=== PATIENT | male | born 1965 | race Caucasian/White ===

== ENCOUNTER 2021-11-19 12:04 | Inpatient (IN) | payer MEDICAID, SELFPAY ==
[2021-11-19] VITALS (70 sets, daily range): BP systolic 105–170; BP diastolic 52–102; PULSE 10–145; RESP 12–36; TEMP 36.4–39; O2SAT 86–98
[2021-11-19 13:00] LABS: Abs Immature Grans 0.06 10^3/uL (0.0-0.06); Absolute Basophil Count 0.01 10^3/uL (0.0-0.2); Absolute Eosinophil Count 0.01 10^3/uL (0.0-0.7); Absolute Lymphocyte Count 0.61 10^3/uL (1.2-3.4); Absolute Monocyte Count 0.44 10^3/uL (0.1-0.8); Absolute Neutrophil Count 3.28 10^3/uL (1.2-6.7); Basophils % 0.2; Eosinophils % 0.2; HCT 41.4 % (40.0-50.0); HGB 14.3 g/dL (13.5-17.5); Immature Grans % 1.4; Lymphocytes % 13.8; MCH 30.1 pg (27.0-33.0); MCHC 34.5 % (32.0-36.0); MCV 87.2 fL (80-95); MPV 9.8 fL (8.0-11.0); Neutrophils % 74.4; Nucleated RBC 0 %; Platelet Count 139 10^3/uL (130-400); RBC 4.75 10^6/uL (4.36-5.78); RDW-SD 41.2 fL; WBC 4.41 10^3/uL (4.4-10.8)
--- NOTE | 2021-11-19 13:15 | RT.EKG_ITS ---
APPROVED REPORT Exam: Resting ECG Reason for Exam: SOB Patient Location: E HR:102 bpm ECG Measurements Heart Rate 102 AXIS NE 192 P 47 QRSd 85 QRS 31 QT 336 T 89 QTc 439 Conclusion Sinus tachycardia...rate> 99 Supraventricular bigeminy...bigeminy string>4 w/ SV complexes I have reviewed and interpreted ECG and agree with software generated interpretation.
--- NOTE | 2021-11-19 13:22 | ED.GENADUL_ITS ---
Discharge Plan Disposition Patient Disposition: [facility] INPATIENT Discharge Details Chief Complaint: SOB Clinical Impression: Atrial fibrillation with rapid ventricular response, COVID Admit Date/Time: 11/19/21 17:46 Admit Provider: Jeffery Bahena Attending Provider: Jeffery Bahena Primary Care Provider: Eliecer Weller ED Provider: Amalia Martinez Discharge Data Discharge Date/Time-TO BE ENTERED AT DEPARTURE: 11/19/21 18:49 Medical Decision Making Tucker Cadet is a 56-year-old man with a history of hypertension, paroxysmal atrial fibrillation on Xarelto recently diagnosed with Covid presenting to emergency department with cough and shortness of breath. On exam patient is nontoxic-appearing. O2 sat 90 to 92% on room air at rest. Heart rate 90-1 05, irregular. Concern for likely worsening Covid pneumonia versus CHF versus pu lmonary embolism versus other. Doubt myocarditis. Exam/history at this time is not consistent with sepsis, acute aortic process. EKG shows sinus tachycardia at 102. Plan for IV placement, telemetry, screening labs, imaging pending D- dimer. Labs reviewed, D-dimer elevated, hemoglobin 14.3, sodium 131, creatinine 1.0, troponin negative, BNP 6. Plan for CT chest. CT chest shows Covid pneumonia, no PE. Pt meets criteria for monoclonal antibody infusion. Patient converted to atrial fibrillation with rapid ventricular rate. Heart rate 140s, blood pressure unchanged. Patient reports that he can feel sensation of palpitations since onset of A. fib, no other new complaints at this time. Plan for diltiazem bolus, patient is on p.o. diltiazem at home. Heart rate improved after bolus to 120s, plan for diltiazem infusion. Patient noted to have desatted to high 80s with movement. At this time given atrial fibrillation with RVR, patient not taking his meds recently, and COVID-19 with l ikely exertional hypoxia, plan for admission. Medical Records Medical records reviewed: Yes I reviewed the patient's medical records. Imaging Data Radiologic Study: Attestation: I personally reviewed and interpreted this imaging study as follows: Radiologist's impression: EXAM: CT CHEST PE CTA CLINICAL HISTORY: SOB, COVID+. TECHNIQUE: Imaging Protocol: Axial CT angiography was performed with multi- slice acquisition and multi-planar and/or 3D reconstructions. CONTRAST MATERIAL: Intravenous: Omnipaque 350 Contrast volume:100 ml COMPARISON: No exams were available for comparison FINDINGS: Exam is limited by respiratory motion. There are bilateral mainly peripheral ground-glass infiltrates in both upper and lower lobes, with appearance compatible with COVID- 19 pneumonia. No pleural or pericardial effusions are seen. There is mild reactive mediastinal adenopathy. No pulmonary emboli are identified. Small branch vessel emboli are not excluded due to motion. It is normal in diameter. The liver shows fatty infiltration. Degenerative changes are noted in the mid to lower thoracic spine. IMPRESSION: Bilateral infiltrates compatible with COVID- 19 pneumonia. No evidence of pulmonary embolism. Lab Data Lab results reviewed: Yes I reviewed the patient's lab results. ECG Data Attestation: I personally reviewed and interpreted this ECG (s) as follows: Interpretation: EKG shows sinus tachycardia at 102, normal axis, frequent PACs, no acute ischemic changes, no STEMI EKG 16: 11 shows atrial fibrillation at 133, normal axis, no acute ischemic changes, no STEMI HPI General Mode of arrival: ambulatory . Date/Time Provider Initiated Documentation: 11/19/21 12:28 . Limitations to Documentation: no limitations . Information obtained by: patient, RN notes reviewed and old records reviewed . HPI Narrative: Tucker Cadet is a 56-year-old man with a history of hypertension, atrial fibrillation on Xarelto, recently diagnosed with Covid presenting to the emergency department with shortness of breath. Patient reports that he began having symptoms on 11/12/2021 including cough, shortness of breath, and decreased appetite, and then had positive PCR test for Covid 2 days later. Patient reports that he has had gradually worsening shortness of breath with exertion over the past 2 days. Pulse oximeter at home has been in the high 80s. Patient reports that he has not taken his metoprolol in 3 weeks, as he had trouble getting the prescription refilled. Patient also reports that he has not taken his Lasix since onset of symptoms as he was concerned about getting dehydrated. He does state that he took Lasix this morning as he was worried that he might have fluid buildup in his lungs. He has had some orthopnea intermittently since onset of symptoms. He denies any pain, fevers, vomiting, diarrhea, swelling, rash, numbness, weakness. Has been taking his other medications as usual. He reports decrease p.o. intake due to lack of appetite, but states that he has been drinking plenty of fluids. Related Data Home Medications Medication Instructions Recorded Confirmed amlodipine-benazepril 2 cap PO DAILY 11/19/21 11/19/21 diltiazem HCl [Cardizem CD] 240 mg PO DAILY 11/19/21 11/19/21 dofetilide 500 mcg PO Q12H 11/19/21 11/20/21 furosemide 80 mg PO DAILY PRN 11/19/21 11/19/21 rivaroxaban [Xarelto] 20 mg PO DAILY@1700 11/19/21 11/20/21 metoprolol succinate 100 mg PO DAILY 11/20/21 11/20/21 Allergies Allergy/AdvReac Type Severity Reaction Status Date / Time aspirin AdvReac Intermediate Other (See Unverified 11/19/21 12:20 Comment) lisinopril AdvReac Intermediate Other (See Unverified 11/19/21 12:21 Comment) General Stated Complaint: SOB TARIQ: 2 Review of Systems Narrative: Constitutional: denies fevers, reports decreased appetite Eyes: denies eye pain ENT: denies ear pain, dental pain, sore throat Cardiovascular: denies chest pain, edema Respiratory: Reports SOB, cough GI: denies abdominal pain, vomiting, diarrhea : denies flank pain MSK: denies back pain, neck pain, arthralgias, myalgias Skin: denies rash Neuro: denies headaches, numbness, weakness PFSH All Active Problems (Updated 11/21/21 @ 09:21 by Amalia Martinez MD) Atrial fibrillation with rapid ventricular response (Acute) COVID (Acute) Social History Smoking/Tobacco Use Status: Former Tobacco Use Smoking risk assessment performed?: Yes Substance use type: does not use Exam Narrative Exam Narrative: Constitutional: well and [id number], pleasant, conversing normally HENT: head atraumatic/normocephalic/normal inspection, mucous membranes moist Eyes: conjunctiva normal, sclera normal, pupils 3mm b/l Neck: no stridor, normal ROM, trachea midline Chest: normal inspection Resp: normal work of breathing, speaking in full sentences Cardio: Tachycardic rate, irregularly irregular rhythm GI: abdomen soft, non-tender, non-distended Back: normal inspection, no rash Skin: warm, dry, normal color, no rash Neuro: alert, not altered, grossly non-focal, normal tone Ext: no edema no posterior calf tenderness to palpation Psych: normal mood, normal affect, normal behavior Course Vital Signs Vital signs: Vital Signs Temperature 37.1 C 11/19/21 12:13 Pulse 110 H 11/19/21 12:13 Respiratory Rate 31 H 11/19/21 12:13 Blood Pressure 153/88 H 11/19/21 12:13 Pulse Oximetry 94 11/19/21 12:13 Temperature 37.1 C 11/19/21 12:13 Temperature Source Skin 11/19/21 12:13 Pulse 110 H 11/19/21 12:13 Respiratory Rate 31 H 11/19/21 12:13 Respiratory Effort Non-Labored 11/19/21 13:06 Respiratory Depth Normal 11/19/21 13:06 Respiratory Pattern Normal 11/19/21 13:06 Blood Pressure 153/88 H 11/19/21 12:13 Blood Pressure Position Sitting 11/19/21 12:13 Pulse Oximetry 94 11/19/21 12:13 Oxygen Delivery Method Room Air 11/19/21 12:13 Oxygen Flow Rate 0 11/19/21 12:13 Pain Level 0 11/19/21 12:13 Comment 11/19/21 12:13 Lab/Test Results Lab/Test Results: Laboratory Tests Range/Units 11/19/21 12:45 WBC (4.4-10.8) 10^3/uL 4.41 RBC (4.36-5.78) 10^6/uL 4.75 Hgb (13.5-17.5) g/dL 14.3 Hct (40.0-50.0) % 41.4 MCV (80-95) fL 87.2 MCH (27.0-33.0) pg 30.1 MCHC (32.0-36.0) % 34.5 RDW (11.8-14.1) % 13.0 Plt Count (130-400) 10^3/uL 139 MPV (8.0-11.0) fL 9.8 Immature Gran % 1.4 Neutrophils % 74.4 Lymphocytes % 13.8 Monocytes % 10.0 Eosinophils % 0.2 Basophils % 0.2 Nucleated RBC % % 0 Absolute Neutrophils (1.2-6.7) 10^3/uL 3.28 Absolute Lymphocytes (1.2-3.4) 10^3/uL 0.61 L Absolute Monocytes (0.1-0.8) 10^3/uL 0.44 Absolute Eosinophils (0.0-0.7) 10^3/uL 0.01 Absolute Basophils (0.0-0.2) 10^3/uL 0.01 PAWSS Have you Been Recently Intoxicated or Drunk Within the Last 30 days?: Yes Have you Ever Experienced Previous Episodes of Alcohol Withdrawal?: No Have you ever Experienced Withdrawal Seizures?: No Have you ever Experienced Delirium Tremens(DT)s?: No Have you ever undergone Alcohol Rehabilitation Treatment (i.e, inpt ot outpatient treatment programs)?: No Have you ever Experienced Blackouts?: No Have you ever Combined Alcohol with other Downers within the last 90 days?: No Have you ever Combined Alcohol with any other Substance of Abuse during the last 90 days?: No Positive Blood Alcohol level on Presentation? [PCS.BAL]: No Evidence of Increased Autonomic Activity (i.e. HR>120, tremor, sweating, agitation, nausea)?: No Result: 1
[2021-11-19 13:34] LABS: ALT 37 U/L (16-63); AST 33 U/L (15-37); Albumin 3.6 g/dL (3.4-5.0); Alkaline Phosphatase 73 U/L (46-116); BUN 11 mg/dL (7-18); Bilirubin, Total 0.7 mg/dL (0.2-1.0); Calcium 8.4 mg/dL (8.5-10.1); Chloride 94 mmol/L (98-107); Glucose 114 mg/dL (74-106); NT-proBNP 6 pg/mL (<300); Potassium 3.9 mmol/L (3.5-5.1); Sodium 131 mmol/L (136-145); Total Protein 8.3 g/dL (6.4-8.2); Troponin I < 50 ng/L (<or=60)
[2021-11-19 13:59] LABS: D-Dimer 587 ng/mlFEU (<500)
--- NOTE | 2021-11-19 14:00 | DI.CT_ITS ---
Exam(s) CT CHEST PE CTA EXAM: CT CHEST PE CTA CLINICAL HISTORY: SOB, COVID+. TECHNIQUE: Imaging Protocol: Axial CT angiography was performed with multi-slice acquisition and mu lti-planar and/or 3D reconstructions. CONTRAST MATERIAL: Intravenous: Omnipaque 350 Contrast volume:100 ml COMPARISON: No exams were available for comparison FINDINGS: Exam is limited by respiratory motion. There are bilateral mainly peripheral ground-glass infiltrate s in both upper and lower lobes, with appearance compatible with COVID- 19 pneumonia. No pleural or pericardial effusions are seen. There is mild reactive mediastinal adenopathy. No pulmonary emboli are identified. Small branch vessel emboli are not excluded due to motion. It is normal in diameter . The liver shows fatty infiltration. Degenerative changes are noted in the mid to lower thoracic s pine. IMPRESSION: Bilateral infiltrates compatible with COVID- 19 pneumonia. No evidence of pulmonary embolism. RADIATION DOSE DELIVERED: 844.35mGy.cm Total DLP DATA REPOSITORY: All CT scans at this facility are submitted to the National Radiology Data Registry (NRDR) Dose Index Registry (DIR) with the [employer] (ACR). RADIATION OPTIMIZATION: All CT scans at this facility use at least one of these dose optimization te chniques: automated exposure control; mA and/or kV adjustment per patient size (includes targeted exa ms where dose is matched to clinical indication); or iterative reconstruction.
--- NOTE | 2021-11-19 16:00 | RT.EKG_ITS ---
APPROVED REPORT Exam: Resting ECG Reason for Exam: tachycardia Patient Location: E HR:133 bpm ECG Measurements Heart Rate 133 AXIS PA 135 P 0 QRSd 87 QRS 56 QT 306 T 45 QTc 453 Conclusion Sinus tachycardia with irregular rate...V-rate 103-165, variation>10% atrial fibrillation at 133, normal axis, no acute ischemic changes, no STEMI
[2021-11-19] MEDS: Normal Saline 250 ML IV (16:08)
[2021-11-19] MEDS: dilTIAZem 25 MG/5 ML VIAL 20 MG IVP (16:22)
[2021-11-19] MEDS: dilTIAZem 125 MG in Normal Saline 100 ML IV (16:54)
--- NOTE | 2021-11-19 17:32 | HPE_ITS ---
Date of service: 11/19/21 Time of Service: 17:32 Assessment and Plan Assessment and plan (1) COVID: Status: Acute Assessment and plan: COVID pneumonitis, with worsening hypoxia. Will begin Remdesivir, steroids and Baricitinib, with supplemental O2 as needed. 1. COVID: as above 2. PAF: already on DOAC. Will titrate Cardizem qtt, and will add back beta marcia (we do not at present having dosing on this) 3. EtOH: sounds like he would have been through the risk period for withd kenneth but will follow on [place] History of Present Illness History of Present Illness Chief Complaint: SOB Narrative: 56 male, had first COVID vaccine dose earlier this month. One week OPTA developed fever, chills, WEI, had positive COVID PCR. Sent home with oximeter. Initially sats mid-90s, but over past few days has developed dry cough and SOB, with sats down to high 80s. Came to ER for evaluation. In ER findings of note for variable sats in high 80s- low 90s; white count 4.1 with lymphopenia; d-Dimer slightly up 587. CTA neg PE but shows bilateral ground glass opacities c/w COVID. While in ER patient received MAb, with thought of possible d/c. Then went in to AF with RVR. Note h/o PAF, and that he has been out of his usual beta marcia for two weeks. Given Cardizem 20 IV then started drip, currently at 5. Further note h/o heavy alcohol use, but has not had a drink for over a week and denies h/o withdrawal symptoms. I was asked to evaluate for admission. Review of Systems All systems reviewed & are unremarkable except as noted in HPI and below PFSH All Active Problems (Updated 11/19/21 @ 17:42 by Jeffery Bahena MD) COVID (Acute) Social History Smoking/Tobacco Use Status: Former Tobacco Use Smoking risk assessment performed?: Yes Substance use type: does not use Meds Allergies and Home Medications Allergies Allergy/AdvReac Type Severity Reaction Status Date / Time aspirin AdvReac Intermediate Other (See Unverified 11/19/21 12:20 Comment) lisinopril AdvReac Intermediate Other (See Unverified 11/19/21 12:21 Comment) Home Medications Medication Instructions Recorded Confirmed Type amlodipine-benazepril 2 cap PO DAILY 11/19/21 11/19/21 History diltiazem HCl [Cardizem CD] 240 mg PO DAILY 11/19/21 11/19/21 History dofetilide 500 mcg PO BID 11/19/21 11/19/21 History furosemide 80 mg PO DAILY PRN 11/19/21 11/19/21 History rivaroxaban [Xarelto] 20 mg PO DAILY 11/19/21 11/19/21 History Exam Narrative Exam Narrative: 165/64, 120s-130s; 36.0, RR 19-33, O2 sat 89 during visit, last recorded 95. HEENT atraumatic; neck supple; lungs diminished but grossly clear (sounds obscured by ambient noise); heart irr/irr; abdomen soft and NT; extremites lymphedema with chronic stasis changes; neuro Ox3, lucid, moves all 4 s Results Labs Result diagrams: 11/19/21 12:45 11/19/21 12:45 Labs: Laboratory Results - last 24 hr 11/19/21 11/19/21 11/19/21 12:45 12:45 12:45 WBC 4.41 RBC 4.75 Hgb 14.3 Hct 41.4 MCV 87.2 MCH 30.1 MCHC 34.5 RDW 13.0 Plt Count 139 MPV 9.8 Immature Gran % 1.4 Neutrophils % 74.4 Lymphocytes % 13.8 Monocytes % 10.0 Eosinophils % 0.2 Basophils % 0.2 Nucleated RBC % 0 Absolute Neutrophils 3.28 Absolute Lymphocytes 0.61 L Absolute Monocytes 0.44 Absolute Eosinophils 0.01 Absolute Basophils 0.01 D-Dimer 587 H Sodium 131 L Potassium 3.9 Chloride 94 L Carbon Dioxide 27.0 Anion Gap 10.0 BUN 11 Creatinine 1.0 Estimated GFR/1.73 m2 >= 60.00 Glucose 114 H Calcium 8.4 L Total Bilirubin 0.7 AST 33 ALT 37 Alkaline Phosphatase 73 Troponin I < 50 NT-Pro-B Natriuret Pep 6 Total Protein 8.3 H Albumin 3.6 Last Vital Signs Temp 36.4 C L 11/19/21 16:10 Pulse 118 H 11/19/21 17:17 Resp 33 H 11/19/21 17:30 BP 165/64 H 11/19/21 17:17 Pulse Ox 95 11/19/21 17:30 PAWSS Have you Been Recently Intoxicated or Drunk Within the Last 30 days?: Yes Have you Ever Experienced Previous Episodes of Alcohol Withdrawal?: No Have you ever Experienced Withdrawal Seizures?: No Have you ever Experienced Delirium Tremens(DT)s?: No Have you ever undergone Alcohol Rehabilitation Treatment ([facility].e[facility])?: No Have you ever Experienced Blackouts?: No Have you ever Combined Alcohol with other Downers within the last 90 days?: No Have you ever Combined Alcohol with any other Substance of Abuse during the last 90 days?: No Positive Blood Alcohol level on Presentation? [PCS.BAL]: No Evidence of Increased Autonomic Activity (i.e. HR>120, tremor, sweating, a gitation, nausea)?: No Result: 1
[2021-11-19] MEDS: Metoprolol 25 MG TAB PO ×2 (18:19→23:08)
[2021-11-19] MEDS: Dexamethasone 4 MG/ML VIAL 6 MG IVP (18:19)
[2021-11-19] MEDS: REMDESIVIR 200 MG in Normal Saline 250 ML 250 MG IVPB (18:20)
[2021-11-19 18:23] LABS: Source Nasopharynx
--- NOTE | 2021-11-19 19:32 | NUR.NOTE ---
Nursing Note:Pt receive at 18:55, alert and oreintedx4, cardizem drip at 15 mg/hr, remdesevir in progress, Pt w/o any cardio resp. distress, see VS sheet.
--- NOTE | 2021-11-19 19:42 | NUR.NOTE ---
Nursing Note:RT aware that pt has CPAP at night and wants to be called after order received from MD if pt was to experience any distress
[2021-11-19] MEDS: Normal Saline Flush 10 ML SYR IVP (19:49)
[2021-11-19] MEDS: Acetaminophen 325 MG TAB 650 MG PO (19:49)
[2021-11-19 20:06] LABS: Influenza A PCR Negative (Negative); Influenza B PCR Negative (Negative); RSV PCR Negative (Negative)
[2021-11-19] MEDS: Dofetilide 250 MCG CAP 500 MCG PO (20:07)
[2021-11-19 20:11] LABS: COVID-19 PCR POSITIVE (Negative)
[2021-11-20] VITALS (50 sets, daily range): BP systolic 99–140; BP diastolic 44–90; PULSE 10–110; RESP 0–36; TEMP 36.1–36.8; O2SAT 85–95
[2021-11-20] MEDS: dilTIAZem 125 MG in Normal Saline 100 ML 10 MG IV (01:26)
--- NOTE | 2021-11-20 08:06 | W.PM.PROGNOT ---
Date of Service Date of service: 11/20/21 Time of Service: 08:10 Assessment and Plan Assessment and plan (1) COVID: Status: Acute Assessment and plan: DC baricitinib, continue Decadron, continue Remdesivir. Encourage I-S and Acapella every 1-2 hours while awake as well as use of CPAP while sleeping and as needed. No evidence of PE on his CTA. (2) Atrial fibrillation with rapid ventricular response: Status: Acute Assessment and plan: Continue Xarelto, start Lopressor and diltiazem. We will try to obtain his home medication list to find out what dose of Toprol he was taken at home. For now I will start him on Lopressor 25 mg 4 times daily and Cardizem 60 mg 3 times daily. If his rate is well controlled on this regimen I will switch him back to long-acting agents. Continue dofetilide 500 mcg p.o. twice daily. I suspect the inciting event for the rapid atrial fibrillation was his respiratory exacerbation from his Covid pneumonia. Continue ICU while on diltiazem drip. Once he has been stable for 3 to 4 hours he could be moved out to the medical/surgical floor. Subjective Subjective Interval history since last seen: 56-year-old male with a history of paroxysmal atrial fibrillation treated with Xarelto and dofetilide and Cardizem and Toprol developed URI symptoms last week which progressed and he was tested and found to be positive for COVID-19. He been monitoring his oxygen at home with pulse oximeter and it developed increasing dyspnea cough and mild hypoxemia. In the emergency department he was in sinus tachycardia but went into rapid atrial fibrillation. He is now admitted to the intensive care unit for treatment of A. fib with RVR. He was put on a diltiazem drip. Rate is now controlled in the 80s to 90s diltiazem drip at 5 mg/h. We are going to resume oral Lopressor and diltiazem and wean him off the diltiazem drip. With respect to his COVID-19 pneumonia he has bilateral groundglass infiltrates in both upper and lower lobes compatible with COVID-19 pneumonia. Nasal PCR is positive for SARS-CoV-2. He was given sarilumab monoclonal antibody in the emergency department and was started last night on Remdesivir and Decadron and baricitinib. Patient does not need baricitinib since he received a monoclonal antibody. We will treat him for 3 more days of Remdesivir as long as his hypoxemia has resolved and his A. fib rate is controlled he can be discharged home. For now he remains in the intensive care unit while he is on diltiazem drip but once his rate is controlled he can move out to the medical/surgical floor on telemetry. Patient has CECE and does wear CPAP mask at night and was set up with CPAP last night. Exam Narrative Exam Narrative: Morbidly obese white male lying in bed semisolid position alert and oriented person place time circumstance. Chest is obese lungs are clear anteriorly posteriorly has some fine bibasilar rales no rhonchi or wheezes Heart is irregularly irregular but at a controlled rate without appreciable murmur rub Abdomen is obese soft and nontender Lower extremities with 2+ pitting edema and brown purplish stasis dermatitis discoloration of his legs. No calf tenderness. Objective Last Vital Signs Temp 36.6 C 11/20/21 00:16 Pulse 82 11/20/21 07:43 Resp 22 11/20/21 07:50 BP 139/81 11/20/21 07:43 Pulse Ox 91 L 11/20/21 07:50 Laboratory Results - last 24 hr 11/19/21 11/19/21 11/19/21 12:45 12:45 12:45 WBC 4.41 RBC 4.75 Hgb 14.3 Hct 41.4 MCV 87.2 MCH 30.1 MCHC 34.5 RDW 13.0 Plt Count 139 MPV 9.8 Immature Gran % 1.4 Neutrophils % 74.4 Lymphocytes % 13.8 Monocytes % 10.0 Eosinophils % 0.2 Basophils % 0.2 Nucleated RBC % 0 Absolute Neutrophils 3.28 Absolute Lymphocytes 0.61 L Absolute Monocytes 0.44 Absolute Eosinophils 0.01 Absolute Basophils 0.01 D-Dimer 587 H Sodium 131 L Potassium 3.9 Chloride 94 L Carbon Dioxide 27.0 Anion Gap 10.0 BUN 11 Creatinine 1.0 Estimated GFR/1.73 m2 >= 60.00 Glucose 114 H Calcium 8.4 L Total Bilirubin 0.7 AST 33 ALT 37 Alkaline Phosphatase 73 Troponin I < 50 NT-Pro-B Natriuret Pep 6 Total Protein 8.3 H Albumin 3.6 COVID-19 Source SARS-CoV-2 (PCR) Influenza Type A (PCR) Influenza Type B (PCR) RSV (PCR) 11/19/21 18:12 WBC RBC Hgb Hct MCV MCH MCHC RDW Plt Count MPV Immature Gran % Neutrophils % Lymphocytes % Monocytes % Eosinophils % Basophils % Nucleated RBC % Absolute Neutrophils Absolute Lymphocytes Absolute Monocytes Absolute Eosinophils Absolute Basophils D-Dimer Sodium Potassium Chloride Carbon Dioxide Anion Gap BUN Creatinine Estimated GFR/1.73 m2 Glucose Calcium Total Bilirubin AST ALT Alkaline Phosphatase Troponin I NT-Pro-B Natriuret Pep Total Protein Albumin COVID-19 Source Nasopharynx SARS-CoV-2 (PCR) POSITIVE A* Influenza Type A (PCR) Negative Influenza Type B (PCR) Negative RSV (PCR) Negative PAWSS Have you Been Recently Intoxicated or Drunk Within the Last 30 days?: Yes Have you Ever Experienced Previous Episodes of Alcohol Withdrawal?: No Have you ever Experienced Withdrawal Seizures?: No Have you ever Experienced Delirium Tremens(DT)s?: No Have you ever undergone Alcohol Rehabilitation Treatment (i.e, inpt ot outpatient treatment programs)?: No Have you ever Experienced Blackouts?: No Have you ever Combined Alcohol with other Downers within the last 90 days?: No Have you ever Combined Alcohol with any other Substance of Abuse during the last 90 days?: No Positive Blood Alcohol level on Presentation? [PCS.BAL]: No Evidence of Increased Autonomic Activity (i.e. HR>120, tremor, sweating, agitation, nausea)?: No Result: 1
[2021-11-20] MEDS: dilTIAZem 60 MG TAB PO ×4 (08:41→19:57)
[2021-11-20] MEDS: Metoprolol 25 MG TAB PO ×3 (08:42→17:26)
[2021-11-20] MEDS: Dexamethasone 4 MG TAB 6 MG PO (08:42)
[2021-11-20] MEDS: Dofetilide 250 MCG CAP 500 MCG PO ×2 (08:43→19:57)
[2021-11-20] MEDS: Rivaroxaban 10 MG TABLET 20 MG PO (08:43)
--- NOTE | 2021-11-20 08:46 | INITIAL_ITS ---
- If Service Date Differs Date of service: 11/20/21 Time of Service: 08:46 Care Management Initial Assess REASON FOR HOSPITALIZATION:: Covid-19, hypoxia and Covid Pneumonia, PAF, ETOH PAST MEDICAL HISTORY/PAST SURGICAL HISTORY:: paroxysmal atrial fibrillation. PREVIOUS FUNCTIONAL STATUS/SOCIAL/FAMILY SUPPORTS:: Tucker lives in [place], but has been staying at his camp in [place], [place] with his dog since it's closer to where he's working. 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 His dog is being cared for by his friend while he's in the hospital. CURRENT FUNCTIONAL STATUS:: CM spoke with Tucker via phone due to covid restrictions. Tucker was sitting up in his bed and was pleasant and easily engaged in conversation. He reports that he's feeling much better than when he came in. Anticipate that Tucker will transfer to MS status later today as long as he continues to improve. ADVANCE DIRECTIVES:: None on file Has patient been provided with info about the portal/API?: Yes Did the patient sign up for the portal?: No CODE STATUS:: Full Code INSURANCE COVERAGE / FINANCIAL ISSUES:: Medicaid CURRENT HOME/COMMUNITY SERVICES/EQUIPMENT:: CPAP through [facility] PRIMARY CARE PHYSICIAN:: Dr. Eliecer Weller, [facility] POTENTIAL DISCHARGE NEEDS:: Follow up appointments PATIENT/FAMILY EDUCATION NEEDS:: Review discharge instructions, limitations, medications and plan to follow up with community providers. TRANSPORTATION:: Via private vehicle located in parking lot. PLAN:: Tucker requires close monitoring and treatment for covid-19 with hypoxia and AF with RVR. Anticipate, he will be discharged home via private when medically ready and follow up with community providers. He may need new home O2 and new [facility] services, if indicated. CM will continue to support discharge planning needs.
[2021-11-20 09:34] LABS: Lab Add On Test DONE
[2021-11-20 09:45] LABS: Magnesium 1.9 mg/dL (1.8-2.4)
[2021-11-20] MEDS: Normal Saline Flush 10 ML SYR IVP ×2 (09:50→17:26)
[2021-11-20] MEDS: Furosemide 80 MG TAB PO (10:45)
[2021-11-20] MEDS: Potassium Chloride 20 MEQ TABCR PO (10:46)
--- NOTE | 2021-11-20 10:50 | PHA.REVIEW ---
Pharmacy Admission Review - Admission Clinical Review (Last Reviewed 11/19/21 @ 17:39 by Jefefry Bahena MD) Atrial fibrillation with rapid ventricular response (Acute) COVID (Acute) aspirin Adverse Reaction (Intermediate, Unverified 11/19/21 12:20) Other (See Comment) lisinopril Adverse Reaction (Intermediate, Unverified 11/19/21 12:21) Other (See Comment) Resuscitation Status Full Code Height 6 ft 3 in Weight 176.6 kg COVID,A-FIB - Comments Comments/Follow Ups: In ICU for A-fib, not COVID related. Updated home med list according to external med history/pharmacy data. Toprol was not included on that list, MD aware. Rate controlled, transitioning from Diltiazem infusion to oral. Rec'd Sotrovimab in ED 11/19, then admitted and started on Remdesivir for likely only 3 days. Baricitinib was not started. Afebrile today. Sats are low 90's, not on oxygen. Is being diuresed, therefore monitor weight, I/O, Potassium ordered to replenish the diuresis. Lorazepam for CIWA-currently zero. Can be transferred to /S once Afib stable - Renal Dosing Renal Dosing: BUN 11 mg/dL (7-18) 11/19/21 12:45 Creatinine 1.0 mg/dL (0.70-1.30) 11/19/21 12:45 Medications needing adjustments: Reviewed (CrCl~99ml/min-no med adjustments) - Anticoagulation Anticoagulation: Hgb 14.3 g/dL (13.5-17.5) 11/19/21 12:45 Hct 41.4 % (40.0-50.0) 11/19/21 12:45 Plt Count 139 10^3/uL (130-400) 11/19/21 12:45 Creatinine 1.0 mg/dL (0.70-1.30) 11/19/21 12:45 Medications: Rivaroxaban (Xarelto 20mg daily for A-fib, changed to be dosed with evening meal) - Relevant Labs Sodium 131 mmol/L (136-145) L 11/19/21 12:45 Potassium 3.9 mmol/L (3.5-5.1) 11/19/21 12:45 Chloride 94 mmol/L (98-107) L 11/19/21 12:45 Magnesium 1.9 mg/dL (1.8-2.4) 11/19/21 12:45 Electrolytes, C-Reactive P, ESR: Reviewed (Monitor lytes-being diuresed) - DM Control DM Control: Glucose 114 mg/dL (74-106) H 11/19/21 12:45 Insulin Dosing: N/A - Heart Failure/NM Heart Failure/NM: Troponin I < 50 ng/L (<or=60) 11/19/21 12:45 NT-Pro-B Natriuret Pep 6 pg/mL (<300) 11/19/21 12:45 EF%, TY's, B-Blockers, Diuretics: Reviewed (Diltiazem, Metoprolol, Tikosyn, Lasix) - BP Control BP Control: Blood Pressure 139/81 Blood Pressure 140/88 Blood Pressure 99/54 Blood Pressure 102/44 Blood Pressure 126/60 If elevated: Reviewed (Will transition to long acting Diltiazem and Metoprolol once stable) - Qtc Review If Elevated: Reviewed (QTC 453) - Current meds Current Medication Order Review: Intervened (Added Toprol XL 100mg daily to home med list)
[2021-11-20] MEDS: REMDESIVIR 100 MG in Normal Saline 250 ML 250 MG IVPB (17:27)
[2021-11-21] MEDS: Metoprolol 25 MG TAB PO ×3 (01:21→11:57)
[2021-11-21 01:34] VITALS: BP 118/79; PULSE 76; RESP 16; TEMP 36.6; O2SAT 90
[2021-11-21 06:35] VITALS: BP 121/77; PULSE 88; RESP 18; TEMP 36.4; O2SAT 92
[2021-11-21 06:58] VITALS: PULSE 92
[2021-11-21 07:28] LABS: Abs Immature Grans 0.08 10^3/uL (0.0-0.06); Absolute Basophil Count 0.02 10^3/uL (0.0-0.2); Absolute Lymphocyte Count 0.68 10^3/uL (1.2-3.4); Absolute Monocyte Count 0.45 10^3/uL (0.1-0.8); Absolute Neutrophil Count 3.25 10^3/uL (1.2-6.7); Basophils % 0.4; HCT 41.6 % (40.0-50.0); HGB 13.8 g/dL (13.5-17.5); Immature Grans % 1.8; Lymphocytes % 15.2; MCH 29.2 pg (27.0-33.0); MCHC 33.2 % (32.0-36.0); MCV 88.1 fL (80-95); MPV 9.8 fL (8.0-11.0); Neutrophils % 72.6; Nucleated RBC 0 %; Platelet Count 198 10^3/uL (130-400); RBC 4.72 10^6/uL (4.36-5.78); RDW 12.9 % (11.8-14.1); WBC 4.48 10^3/uL (4.4-10.8)
[2021-11-21 07:42] LABS: ALT 51 U/L (16-63); AST 36 U/L (15-37); Albumin 3.3 g/dL (3.4-5.0); Alkaline Phosphatase 69 U/L (46-116); Anion Gap 7.7 mmol/L (3-11); BUN 15 mg/dL (7-18); Bilirubin, Total 0.5 mg/dL (0.2-1.0); C-Reactive Protein 1.44 mg/dL (0.0-0.3); CO2 29.3 mmol/L (21.0-32.0); CREATININE 0.9 mg/dL (0.70-1.30); Calcium 8.9 mg/dL (8.5-10.1); Chloride 98 mmol/L (98-107); Glucose 136 mg/dL (74-106); Potassium 4.2 mmol/L (3.5-5.1); Sodium 135 mmol/L (136-145); Total Protein 7.9 g/dL (6.4-8.2)
[2021-11-21 08:17] LABS: Procalcitonin < 0.1 ng/mL
[2021-11-21] MEDS: Furosemide 80 MG TAB PO (08:52)
[2021-11-21] MEDS: Dexamethasone 4 MG TAB 6 MG PO (08:52)
[2021-11-21] MEDS: dilTIAZem 60 MG TAB PO (08:52)
[2021-11-21] MEDS: Potassium Chloride 20 MEQ TABCR PO (08:52)
[2021-11-21] MEDS: Dofetilide 250 MCG CAP 500 MCG PO (08:52)
--- NOTE | 2021-11-21 09:15 | CMPROGNOTE_ITS ---
- If Service Date Differs Date of service: 11/21/21 Time of Service: 09:15 Care Management Progress Note S/O: A: 56 year old male admitted to [facility] on 11/19/21 for Covid-19, hypoxia and Covid Pneumonia, PAF P: Tucker requires close monitoring and treatment for covid-19 with hypoxia and AF with RVR. Anticipate, he will be discharged home via private when medically ready and follow up with community providers. He may need new home O2 and new [facility] services, if indicated. CM will continue to support discharge planning needs.
[2021-11-21] MEDS: dilTIAZem CD 120 MG CAPCR 240 MG PO (10:33)
[2021-11-21 10:35] VITALS: BP 129/92; PULSE 90; RESP 18; TEMP 36.7; O2SAT 91
[2021-11-21 12:02] VITALS: BP 131/79; PULSE 91; RESP 18; O2SAT 92
--- NOTE | 2021-11-21 14:26 | W.PM.DS.N ---
Date of service: 11/21/21 Time of Service: 14:26 DS: Diagnosis Discharge Diagnosis (1) COVID: Status: Acute (2) Atrial fibrillation with rapid ventricular response: Status: Acute Discharge Plan Disposition Patient Disposition: HOME Condition: Good Discharge Details Reason For Visit: [place] Admit Date/Time: 11/19/21 17:46 Admit Provider: Jeffery Bahena Attending Provider: Jeffery Bahena Primary Care Provider: Eliecer Weller Hospital Course Hospital Course: 56-year-old male with a past medical history of paroxysmal atrial fibrillation, chronically anticoagulated with a D.O.A.C., essential hypertension who is been vaccinated with his first COVID vaccine in early October 2021 develop fever chills headache and nonproductive cough about a week prior to admission. Was diagnosed with COVID-19 infection and was sent home with a home pulse oximeter. Over the last few days his cough is become worse he has developed shortness of breath he noticed his oxygen desaturation dropping into the high 80s. In the emergency department his oxygen saturation was in the high 80s to low 90s and a white count of 4100 with a lymphopenia and a slightly elevated D-dimer of 587. CT of the chest showed no pulmonary embolus but showed bilateral groundglass opacities consistent with COVID-19. While in the emergency department he received monoclonal antibody and initially was felt to be able to be discharged home but while in the emergency department he went into rapid atrial fibrillation. Of note patient's been out of his Toprol XL for the last 2 weeks but normally takes dofetilide and diltiazem CD. He was given a bolus of Cardizem 20 mg IV and started on a Cardizem drip and was admitted to the intensive care unit. Admitting hospitalist put him on Decadron and baricitinib along with Remdesivir and continued him on his D.O.A.C. He also gave him oral Lopressor. On the morning after admission I assumed his care and put him on scheduled doses of Lopressor 25 mg 4 times daily and Cardizem 60 mg p.o. 3 times daily and he was weaned off his Cardizem drip. He was maintained on his dofetilide 500 mcg twice a day. Supplemental oxygen was readily weaned off and he remained on room air. Patient has a history of sleep apnea and was put on CPAP at night. Throughout his hospital stay he maintain his oxygen saturation on room air with the exception of some very brief spells which his oxygen saturation dipped down into the high 80s. Baricitinib was discontinued Remdesivir was continued for 3 days and Decadron was discontinued. Patient responded well to oral calcium channel blockers and beta-blockers for his rate control and was treated with his usual dose of Lasix and Xarelto. On the day of discharge she was put on long-acting Cardizem CD 240 mg daily and his heart rate was well controlled running in the 80s to 90s. Patient was discharged with a new home prescription for Toprol-XL 100 mg daily. Patient stated he had plenty of his Cardizem CD as well as his Xarelto and his Tikosyn. Laboratory work-up included routine CMP CBC D-dimer nasal swab for influenza RSV and SARS-CoV-2. CBC demonstrated a normal total white count 4400 with an absolute lymphocytopenia of 610. CMP demonstrated a low sodium of 131 with normal electrolytes and normal renal and liver function tests. Procalcitonin level was normal at less than 0.1 and CRP was mildly elevated at 1.44. D-dimer was mildly elevated at 587. Chest CT demonstrated bilateral groundglass infiltrates but no pulmonary embolism. Patient was discharged in markedly improved condition and is to continue in isolation for 5 more days. Home Meds and New Rx's Prescriptions: Continued diltiazem HCl [Cardizem CD] 240 mg Capsule,Extended Release 24hr 240 mg PO DAILY RF: 0 furosemide 80 mg Tablet 80 mg PO DAILY PRNRF: 0 amlodipine-benazepril 5-20 mg Capsule 2 cap PO DAILY RF: 0 dofetilide 500 mcg Capsule 500 mcg PO Q12H RF: 0 Xarelto 20 mg Tablet 20 mg PO DAILY@1700 RF: 0 metoprolol succinate 100 mg Tablet Extended Release 24 Hr 100 mg PO DAILY Qty: 30 RF: 1 Discharge Instructions Instructions: A-fib (Atrial Fibrillation) (DC), Droplet Precautions (GEN), COVID-19 (Coronavirus Disease 2019) (DC), COVID-19 and Chronic Health Conditions (DC), COVID-19: Slow the Coronavirus Spread (DC), Face Coverings (Masks) and COVID-19 (DC) Stand Alone Forms: Nursing Discharge Form Referrals: Goldy Gage [ NON-[facility] STAFF PHYSICIAN] - (call for an appointment ) Eliecer Weller [Primary Care Provider] - (Please call your Primary Doctor for an appointment in the next 2 weeks ) Activity:: Activity as Tolerated Equipment/Supplies:: No Equipment Needed Diet:: Normal Diet Discharge Orders Discharge Orders: Discharge Order (Routine); Ordered 11/21/21 Ordered By: Chalo López Other Ambulatory Orders: Holter Monitor (Routine) Timeframe: 1 Day Facility: [facility] - Location: Respiratory Therapy Ordered By: Chalo López Discharge Data Discharge Date/Time-TO BE ENTERED AT DEPARTURE: 11/21/21 16:17 DS: Summary Time Spent with Patient providing and/or coordinating discharge services: Less than 30 minutes Status at Discharge Functional status at discharge: independent ambulation Overall status at discharge: patient is progressing back to baseline Mental Status: mental status grossly normal Speech and Movement: speech and movement normal Mood: congruent mood Affect: normal affect Exam Narrative Exam Narrative: Morbidly obese male lying in bed on his back wearing his CPAP mask. He just woke up from a nap was on the telephone ordering his dinner HEENT shows venr complexion to his face no accessory respiratory muscle use. Lungs are clear to auscultation Chest is barrel chested Heart is irregularly irregular at a controlled rate Psych Mental Status: mental status grossly normal Speech and Movement: speech and movement normal Mood: congruent mood Affect: normal affect DS: Data Vitals/I&O Vitals and I&O: Vital Signs Temperature 36.7 C 11/21/21 10:35 Temperature Source Tympanic 11/21/21 10:35 Pulse 91 H 11/21/21 12:02 Pulse Rhythm Irregular 11/21/21 09:58 Pulse 103 H 11/20/21 11:00 Respiratory Rate 18 11/21/21 12:02 Respiratory Effort 11/21/21 09:58 Respiratory Depth Normal 11/21/21 09:58 Respiratory Pattern Normal 11/21/21 09:58 Blood Pressure 131/79 11/21/21 12:02 Blood Pressure Mean 98 11/20/21 10:42 Blood Pressure Position Sitting 11/19/21 12:13 Pulse Oximetry 92 11/21/21 12:02 Oxygen Delivery Method Room Air 11/21/21 12:02 Oxygen Flow Rate 0 11/21/21 12:02 Fraction of Inspired Oxygen (FIO2) 21 11/20/21 11:32 Pain Level 0 11/21/21 10:35 Comment 11/21/21 12:02 Intake & Output 11/20/21 11/21/21 11/21/21 23:59 11:59 23:59 Intake Total 300 / 2038.834 Output Total 800 / 800 Balance 300 / -861.166 -800 / -800 Intake: Oral 300 / 1880 Output: Urine 800 / 800 Other: Urine Color Yellow Urine Appearance Clear Clear Clear Stool Size Large Stool Characteristics Formed Voiding Methods Toilet Data Completed and Pending Labs on day of discharge: Labs from last 24 hours 11/21/21 11/21/21 11/21/21 06:50 06:50 06:50 WBC 4.48 RBC 4.72 Hgb 13.8 Hct 41.6 MCV 88.1 MCH 29.2 MCHC 33.2 RDW 12.9 Plt Count 198 MPV 9.8 Immature Gran % 1.8 Neutrophils % 72.6 Lymphocytes % 15.2 Monocytes % 10.0 Eosinophils % 0.0 Basophils % 0.4 Nucleated RBC % 0 Absolute Neutrophils 3.25 Absolute Lymphocytes 0.68 L Absolute Monocytes 0.45 Absolute Eosinophils 0.00 Absolute Basophils 0.02 Sodium 135 L Potassium 4.2 Chloride 98 Carbon Dioxide 29.3 Anion Gap 7.7 BUN 15 Creatinine 0.9 Estimated GFR/1.73 m2 >= 60.00 Glucose 136 H Calcium 8.9 Total Bilirubin 0.5 AST 36 ALT 51 Alkaline Phosphatase 69 C-Reactive Protein 1.44 H Total Protein 7.9 Albumin 3.3 L Procalcitonin < 0.1 Additional Comments Additional comments: Telemetry was reviewed and heart rate is much better controlled although he remains in atrial fibrillation. Rates this morning were in the high 90s to low 100s. Since receiving his long-acting Cardizem CD this morning heart rate has dropped down into the 70s and 80s. Review of his pulse oximetry trends shows that his SPO2 Has remained at 91% or higher for the last 24 hours and he has not required supplemental oxygen PFSH All Active Problems (Updated 11/21/21 @ 09:21 by Amalia Martinez MD) Atrial fibrillation with rapid ventricular response (Acute) COVID (Acute) Social History Smoking/Tobacco Use Status: Former Tobacco Use Smoking risk assessment performed?: Yes Substance use type: does not use
[2021-11-21] MEDS: REMDESIVIR 100 MG in Normal Saline 250 ML 250 MG IVPB (14:28)
--- NOTE | 2021-11-21 14:53 | PDOC.CMDIS ---
- If Service Date Differs Date of service: 11/21/21 Time of Service: 14:53 LACE Index Scoring Tool - Questions: Length of Stay (in days): 2 Acuity (Admit via E.D.?): Yes E.D. Visits: 1 - Answers: Total Score: 6 Risk of Readmission: Low Risk Care Management Discharge Reason for Hospitalization: Covid-19, hypoxia and Covid Pneumonia, PAF, ETOH Discharge Plan: Discharge home via private vehicle with a holter monitor. 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 May resume a normal diet and activity as tolerated. Practice measures to reduce the spread of covid. Patient/Family Education Needs: Review discharge instructions, limitations, medications and plan to follow up with community providers. Review measures to prevent the spread of Covid. ask me three.
== END 2021-11-21 16:17 | disposition home or self-care (01) | DRG 177 ==
LOC: ER 18:00 → ICU 18:40 → MS 11-20 17:59
PROVIDERS: Emergency Medicine; Internal Medicine; Admitting Provider General Practice; Emergency Provider Student in an Organized Health Care Education/Training Program; PCP Family Medicine; Visit Provider General Practice
DX: U07.1 COVID-19 (principal); J12.82 Pneumonia due to coronavirus disease 2019; Z68.42 Body mass index [BMI] 45.0-49.9, adult; I48.0 Paroxysmal atrial fibrillation; R09.02 Hypoxemia; E66.01 Morbid (severe) obesity due to excess calories; I87.2 Venous insufficiency (chronic) (peripheral); R60.0 Localized edema; Z79.01 Long term (current) use of anticoagulants; Z87.891 Personal history of nicotine dependence
CPT/HCPCS: 36415; 71275; 80053; 84145; 87637; 93005; 96361; 96365; 96366; 96368; 96375; 99285; Q0047; 83735; 83880; 84484; 85025; 85379; 86140; 93010; 94660; 99222; 99238; 99291; J0248; J1100; J8540

== ENCOUNTER 2021-11-21 15:41 | Outpatient (RCR) | payer MEDICAID, SELFPAY ==
--- NOTE | 2021-11-21 15:45 | HOLTER_ITS ---
APPROVED REPORT Conclusion This is a 48-hour Holter monitor ordered for atrial fibrillation Patient was in atrial fibrillation throughout the recording with an average heart rate of 87. Minimu m was 60, maximum 132 There were rare ventricular ectopic beats, several couplets There were no pauses greater than 3 seconds No patient symptoms were reported
== END 2021-12-17 23:59 | disposition home or self-care (01) ==
LOC: RT 15:41
PROVIDERS: PCP Family Medicine; Visit Provider Family Medicine
DX: I48.91 Unspecified atrial fibrillation (principal)
CPT/HCPCS: 93225; 93226

== ENCOUNTER → 2023-10-31 01:24 | Outpatient (CLI) | payer SELFPAY ==
--- NOTE | 2023-10-31 09:57 | DI.RAD_ITS ---
Exam(s) XR KNEE LT 4V AP,LAT,ABBEY,PAT EXAM: XR KNEE LT 4V AP,LAT,ABBEY,PAT CLINICAL HISTORY: evaluate pathology,lt knee pain,m25.562. TECHNIQUE: 2D digital imaging was performed of the left knee. Four images were obtained. Merchant, AP, lateral and PA tunnel views were obtained. COMPARISON: No exams were available for comparison FINDINGS: BONES: No acute fracture is present. No bony destructive lesion is seen. Note is made of a protrusio n arising from the posterior aspect of the proximal metaphysis of the tibia likely reflecting a sessi le osteochondroma. JOINTS: There is mild narrowing of the medial femoral tibial joint. 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 There is a small joint effusion. No joint effusion is seen. No loose body. SOFT TISSUE: Normal. IMPRESSION: 1. No acute bone or joint abnormality. 2. Mild degenerative changes of the knee. 3. Findings most suggestive of an osteochondroma of the proximal posterior tibia. DATA REPOSITORY: RADIATION DOSE DELIVERED:
== END ==
PROVIDERS: PCP Family Medicine; Visit Provider Nurse Practitioner Family
DX: M17.12 Unilateral primary osteoarthritis, left knee (principal)
CPT/HCPCS: 73564

== ENCOUNTER 2023-12-15 09:51 | Outpatient (CLI) | payer SELFPAY ==
--- NOTE | 2023-12-15 08:40 | DI.RAD_ITS ---
Exam(s) XR HIP LT COMPLETE AP PELVIS EXAM: XR HIP LT COMPLETE AP PELVIS CLINICAL HISTORY: LEFT HIP PAIN. TECHNIQUE: 2D digital imaging was performed. Two views. COMPARISON: No exams were available for comparison FINDINGS: Exam is limited by patient body habitus. BONES: No acute fracture is present. No bony destructive lesion is seen. JOINTS: No dislocation present. Hip joint spaces are maintained. Mild bilateral acetabular spurring. Mild degenerative changes of the SI joints. SOFT TISSUE: Normal. IMPRESSION: Mild degenerative changes. DATA REPOSITORY: RADIATION DOSE DELIVERED:
== END 2023-12-15 09:52 | disposition home or self-care (01) ==
LOC: DIORS 09:51
PROVIDERS: PCP Nurse Practitioner Family; Visit Provider Student in an Organized Health Care Education/Training Program
DX: M25.552 Pain in left hip (principal)
CPT/HCPCS: 73502

== ENCOUNTER 2024-01-05 10:57 | Outpatient (CLI) | payer MEDICAID, SELFPAY ==
[2024-01-05 14:55] LABS: HCT 42.3 % (40.0-50.0); HGB 14.1 g/dL (13.5-17.5); MCHC 33.3 % (32.0-36.0); MCV 87 fL (80-95); MPV 8.9 fL (8.0-11.0); Platelet Count 327 10^3/uL (130-400); RBC 4.86 10^6/uL (4.36-5.78); RDW 13.8 % (11.8-14.1); RDW-SD 44.4 fL
[2024-01-05 15:47] LABS: Hemoglobin A1C 6.2 % (<5.7)
[2024-01-05 15:57] LABS: ALT 36 U/L (16-63); AST 18 U/L (15-37); Albumin 3.6 g/dL (3.4-5.0); Alkaline Phosphatase 103 U/L (46-116); Anion Gap 12.1 mmol/L (3-11); BUN 14 mg/dL (7-18); Bilirubin, Total 0.5 mg/dL (0.2-1.0); CO2 27.9 mmol/L (21.0-32.0); CREATININE 1.1 mg/dL (0.70-1.30); Calcium 9.1 mg/dL (8.5-10.1); Calculated LDL 103 mg/dL (<100); Chloride 101 mmol/L (98-107); Cholesterol 158 mg/dL (<200); Glucose 130 mg/dL (74-106); HDL Cholesterol 36 mg/dL (40-60); Potassium 3.8 mmol/L (3.5-5.1); Sodium 141 mmol/L (136-145); Total Protein 8.4 g/dL (6.4-8.2); Triglyceride 96 mg/dL (<150)
[2024-01-05 16:19] LABS: C-Reactive Protein 1.95 mg/dL (<or=0.5)
== END 2024-01-05 10:58 ==
LOC: LBO 01-06 10:59
PROVIDERS: PCP Nurse Practitioner Family; Visit Provider Nurse Practitioner Family
DX: L03.90 Cellulitis, unspecified (principal); Z13.1 Encounter for screening for diabetes mellitus; Z13.220 Encounter for screening for lipoid disorders; I10 Essential (primary) hypertension
CPT/HCPCS: 36415; 80053; 80061; 85027; 83036; 86140

== ENCOUNTER 2024-12-29 16:09 | Outpatient (REF) | payer MEDICAID, SELFPAY ==
[2024-12-29 21:51] LABS: Calculated LDL 118 mg/dL (<100); Cholesterol 199 mg/dL (<200); HDL Cholesterol 54 mg/dL (>or=40); Triglyceride 138 mg/dL (<150)
[2024-12-29 21:57] LABS: Hemoglobin A1C 6.2 % (<5.7)
[2024-12-29 22:07] LABS: Anion Gap 9.1 mmol/L (3-11); BUN 17 mg/dL (7-18); CO2 27.9 mmol/L (21.0-32.0); CREATININE 1.2 mg/dL (0.70-1.30); Calcium 9.2 mg/dL (8.5-10.1); Chloride 100 mmol/L (98-107); Glucose 222 mg/dL (74-106); Potassium 4.6 mmol/L (3.5-5.1); Sodium 137 mmol/L (136-145); TSH (W/Ref FT4) 0.78 uIU/mL (0.36-3.74); Uric Acid 6.6 mg/dL (3.5-7.2)
== END 2024-12-29 16:10 | disposition home or self-care (01) ==
LOC: LBN 16:09
PROVIDERS: PCP Nurse Practitioner Family; Visit Provider Nurse Practitioner Family
DX: Z13.220 Encounter for screening for lipoid disorders (principal); Z13.1 Encounter for screening for diabetes mellitus; M10.9 Gout, unspecified; E66.01 Morbid (severe) obesity due to excess calories; Z68.43 Body mass index [BMI] 50.0-59.9, adult; Z00.00 Encounter for general adult medical examination without abnormal findings
CPT/HCPCS: 80048; 80061; 83036; 84443; 84550

== ENCOUNTER 2025-03-02 01:55 | Outpatient (CLI) | payer MEDICAID, SELFPAY ==
--- NOTE | 2025-03-02 07:30 | DI.US_ITS ---
APPROVED REPORT EXAM: Comprehensive 2D, Doppler, and color-flow Echocardiogram Patient Location: Out-Patient Liquor Commissioner: Sergey Vogel RDCS (AE) Indications: Heart failure, CHF, afib Other Information Study Quality: Technically Difficult. Technically limited study due to body habitus. Conclusion Technically difficult study. Poor parasternal images. Apical images are adequate Normal left ventricular chamber size and function. Ejection fraction is 60 to 65% Normal right ventricular size and function Both atria are normal in size Within the limits of the study no significant valvular disease is identified Wall motion Left Ventricle The left ventricle is grossly normal size. Limited visualization in parasternal imaging due to body h abitus. The left ventricular systolic function is normal. The left ventricular ejection fraction is w ithin the normal range. Unable to assess LV wall thickness. There is normal LV segmental wall motion. There is no ventricular septal defect visualized. LVEF is 60-65%. Right Ventricle The right ventricle is normal size. The right ventricular systolic function is normal. Atria The left atrium size is normal. The right atrium size is normal. The interatrial septum is intact wit h no evidence for an atrial septal defect. Aortic Valve Aortic valve is grossly normal in structure. There is no aortic valvular stenosis. No aortic regurgit ation is present. Mitral Valve The mitral valve is grossly normal in structure. No evidence of mitral valve stenosis. There is no mi tral valve regurgitation noted. Tricuspid Valve The tricuspid valve is grossly normal in structure. There is no tricuspid valve stenosis. Trace tricu spid regurgitation. Pulmonic Valve Pulmonic valve is not well visualized. There is no pulmonic valvular stenosis. There is no pulmonic v alvular regurgitation. Great Vessels The aortic root is normal in size. The ascending aorta is normal in size. Aortic arch is normal in ca liber. IVC is normal in size and collapses >50% with inspiration. Pericardium There is no pericardial effusion. 2D Dimensions Ao Root d 3.06 cm M: 3.1 - 3.7 Ao Asc Diam d 3.42 cm M: 2.6 - 3.4 M-Mode TAPSE 3.07 cm (M/F) >1.7 Auto EF LV EDV A4C 160.7 mL LV EDV A2C 199.4 mL LV EDV BP 181.7 mL LV ESV A4C 56.1 mL LV ESV A2C 77.2 mL LV ESV BP 65.9 mL LVEF(%) A4C 65.1 % LVEF(%) A2C 61.3 % LVEF(%) BP 63.7 % LV SV A4C 104.6 ml LV SV A2C 122.2 ml LV SV BP 115.8 ml LV CO A4C 6.9 L/min LV CO A2C 8.1 L/min LV CO BP 7.5 L/min HR A4C 65.58 BPM HR A2C 66.05 BPM LV EDV Index (BP) LA Volume LA Length A4C 6.8 cm LA Length A2C 5.8 cm LA Area A4C s 17.23 cm2 LA Area A2C s 17.07 cm2 LA Vol A4C A-L 37.14 mL LA Vol A2C A-L 42.29 mL LA Vol Biplane A-L 42.7 mL LA Vol/BSA A4C A-L LA Vol/BSA A2C A-L LA Vol/BSA BP A-L 14.0 mL/m2 LA Vol A4C MOD 34.3 mL LA Vol A2C MOD 41.2 mL LA Vol BP MOD 40.3 mL RA Volume RA Area A4C 9.9 cm2 RA ESV A4C (A-L) 18.6mL RA Vol/BSA A4C A-L RA Length A4C 4.5 cm RA ESV A4C (MOD) 18.7mL LV Diastology MV E' medial 0.096 (>0.07 m/s) MV E Vmax 0.86 (0.4-1.3 m/s) MV E/E' MED 8.96 (<14) MV A Vmax 1.00 (0.4-1.3 m/s) MV E' lateral 0.097 (>0.1 m/s) E/A Ratio 0.9 MV E/E' LAT 8.82 (<14) MV E' Average 0.097 m/s MV E/E'(average) 8.89 Aortic Valve AoV Vmax 1.68 m/s LVOT Vmax 1.28 m/s AoV Peak Grad 11.4 mmHg LVOT Peak Grad 6.6 mmHg AoV Area (Vmax) 3.69 cm2 LVOT VTI 0.258 m AoV VTI 0.389 m LVOT Mean Grad 3.2 mmHg AoV Mean Bon. 1.19 m/s LVOT SV 124.70 mL AoV Mean Grad 6.4 mmHg LVOT Diam s 2.45 cm AoV Area (VTI) 3.20 cm2 AV Regurg Peak Gr. 11.35 mmHg Velocity Ratio 0.76 Mitral Valve MV DT 234 (160-240 msec) MV Vmax TIPS 0.96 m/s MV Mean Grad 2.1 (<2mmHg) MV VTI 0.365 m Pulmonary Valve PV Vmax 0.95 (0.5-1.5 m/s) PV Peak Grad 3.7 mmHg PV Mean Bon 0.67 m/s PV Mean Grad 2.0 mmHg
== END 2025-03-02 02:15 ==
LOC: DI 01:55
PROVIDERS: PCP Nurse Practitioner Family; Visit Provider Internal Medicine Cardiovascular Disease
DX: I50.9 Heart failure, unspecified (principal); I48.91 Unspecified atrial fibrillation
CPT/HCPCS: 93306

== ENCOUNTER → 2025-09-13 09:42 | Outpatient (CLI) | payer MEDICAID, SELFPAY ==
--- NOTE | 2025-09-13 09:30 | DI.RAD_ITS ---
Exam(s) XR KNEE RT 3V AP,LAT,ABBEY EXAM: XR KNEE RT 3V AP,LAT,ABBEY CLINICAL HISTORY: atraumatic, recently treated for gout M25.561 PAIN RT KNEE. TECHNIQUE: 2D digital imaging was performed of the right knee. Three views obtained. AP, lateral and PA tunnel views were obtained. COMPARISON: There are no priors for comparison. FINDINGS: BONES: No acute fracture is present. There is a small erosion of the articular surface of the patella. There is osteopenia present. There is an intramedullary robinson seen in the proximal tibia. JOINTS: The knee is normally aligned. There is a small joint effusion. SOFT TISSUE: Normal. IMPRESSION: 1. Small erosion of the articular surface of the patella which can be seen with an inflammatory arthritis. 2. Small joint effusion. DATA REPOSITORY: RADIATION DOSE DELIVERED:
== END ==
LOC: DI 09:42
PROVIDERS: PCP Nurse Practitioner Family; Visit Provider Nurse Practitioner Family
DX: M25.561 Pain in right knee (principal); M25.461 Effusion, right knee
CPT/HCPCS: 73562

== ENCOUNTER 2025-09-13 10:05 | Outpatient (REF) | payer MEDICAID, SELFPAY ==
[2025-09-13 16:21] LABS: Hemoglobin A1C 5.3 % (<5.7)
[2025-09-13 16:26] LABS: Uric Acid 5.4 mg/dL (3.7-9.2)
[2025-09-13 16:27] LABS: Anion Gap 8.8 mmol/L (3-11); BUN 15 mg/dL (9-23); CO2 27.2 mmol/L (20.0-31.0); Calcium 9.7 mg/dL (8.3-10.6); Chloride 105 mmol/L (98-107); Glucose 90 mg/dL (74-106); Potassium 4.2 mmol/L (3.5-5.1); Sodium 141 mmol/L (136-145)
== END 2025-09-13 10:06 | disposition home or self-care (01) ==
LOC: LBN 10:05
PROVIDERS: PCP Nurse Practitioner Family; Visit Provider Nurse Practitioner Family
DX: R73.03 Prediabetes (principal); M10.9 Gout, unspecified
CPT/HCPCS: 80048; 83036; 84550

== ENCOUNTER 2025-09-14 08:11 | Outpatient (CLI) | payer MEDICAID, SELFPAY ==
[2025-09-14 12:28] LABS: ESR 24 mm/hr (0-20)
[2025-09-14 12:46] LABS: C-Reactive Protein 0.64 mg/dL (<=0.50)
== END 2025-09-14 08:12 | disposition home or self-care (01) ==
LOC: LOS 08:12
PROVIDERS: PCP Nurse Practitioner Family; Visit Provider Nurse Practitioner Family
DX: M25.561 Pain in right knee (principal)
CPT/HCPCS: 36415; 85652; 86200; 86038; 86140; 86431